=== PATIENT | female | born 1945 | race Caucasian/White ===

== ENCOUNTER 2022-10-20 13:23 | Emergency (ER) | payer OTHER ==
[~2022-10-20] VITALS: Ht 165.1 cm; Wt 68.0 kg
[2022-10-20 13:41] VITALS: BP 137/73; PULSE 84; RESP 16; TEMP 98; O2SAT 98
--- NOTE | 2022-10-20 16:57 | NUR ---
Patient discharged with v/s stable. Written and verbal after care instructions given and explained. Patient verbalized understanding. Ambulatory with steady gait. All questions addressed prior to discharge. Advised to follow up with PMD.
== END 2022-10-20 16:57 | disposition home or self-care (01) ==
LOC: MED 13:23
DX: S00.83XA Contusion of other part of head, initial encounter (principal); S60.022A Contusion of left index finger without damage to nail, initial encounter; W01.0XXA Fall on same level from slipping, tripping and stumbling without subsequent striking against object, initial encounter; Y93.89 Activity, other specified; Y92.89 Other specified places as the place of occurrence of the external cause; Y99.8 Other external cause status
CPT/HCPCS: 70450; 70486; 73130; 99284